=== PATIENT | male | born 1985 ===

== ENCOUNTER 2024-09-25 20:57 | Emergency (ER) | payer OTHER, SELFPAY ==
[2024-09-25 21:00] VITALS: BP 137/93
--- NOTE | 2024-09-25 22:18 | ED.GENMED ---
History of Present Illness
General
Chief Complaint: DVT/Possible Blood Clot
Source: patient
Time Seen by Provider: 09/25/24 22:11
History of Present Illness
History of Present Illness:
39yoM with a history of hyperlipidemia not on medications presenting with his for evaluation of left calf pain x 1 week. He denies any trauma or inciting incident. He reports left posterior calf pain that has been constant for week. Pain has
been worsening over the past 24 hours. He had URI symptoms prior to his calf pain starting. He took leftover antibiotics and these symptoms have resolved. No chest pain or shortness of breath. No recent travel.
Phy Exam
General Physical Exam
General Presentation: well appearing and no apparent distress
General age: appears stated age
General Skin: warm and dry
General Habitus: normal
General Mental: alert
ENT Exam
ENT Exam: normocephalic
Cardiovascular Exam
Cardiovascular Exam: regular rate/rhythm and no murmur
Pulmonary Exam
Pulmonary Exam: lungs clear, no respiratory distress, no rales, no crackles, no rhonchi and no wheezing
Radha Coma Scale
Eye Opening: Spontaneous
Verbal Response: Oriented
Motor Response: Obeys Commands
GCS Total Score: 15
Musculoskeletal Exam
Musculoskeletal Exam: other (+Tenderness to posterior L calf. No skin changes or pittingn edema. ROM of L knee and ankle normal. 2+ DP pulse and sensation intact. )
Skin Exam
Skin Exam: normal color and warm/dry
Psychiatric Exam
Psychiatric Exam: normal mood/affect
Course
Orders/Labs/Results
Orders:
Orders
09/25/24 21:04
Legs, left US [US Periph Venous LOWER Ext LT] Urgent
Comment:
Reason For Exam: left calf/posterior knee pain and swelling x 1wk
09/25/24 23:05
Complete Blood Count/With Diff Urgent
Comprehensive Metabolic Panel Urgent
09/25/24 23:35
Apixaban [Eliquis] 10 mg PO ONCE ONE
Abnormal Lab Results
09/25/24
23:05
RBC 4.56 L 10^6/uL
(4.70-6.10)
Hct 38.2 L %
(39.0-52.0)
Absolute Monos (auto) 1.0 H 10^3/uL
(0.1-0.6)
Monocytes % 10.0 H %
(1.7-9.3)
Glucose 110 H mg/dl
(70-99)
09/25/24 23:05
09/25/24 23:05
Vital Signs
Initial and Last Documented VS:
Initial Vital Signs
Temp Pulse Resp BP Pulse Ox
99 F 98 18 137/93 98
09/25/24 21:00 09/25/24 21:00 09/25/24 21:00 09/25/24 21:00 09/25/24 21:00
Last Documented Vital Signs
Temp Pulse Resp BP Pulse Ox
99 F 98 18 129/81 98
09/25/24 21:00 09/25/24 21:00 09/25/24 21:00 09/25/24 23:57 09/25/24 21:00
MDM/Problems Addressed
Differential Diagnosis Includes:
39yoM here with atraumatic L calf pain x 1 week. No CP/SOB. Otherwise asymptomatic. VSS. He is well appearing in no distress. There is tenderness to the L posterior calf on exam. No skin changes or pitting edema. LLE is neurovascularly intact.
Differential diagnosis includes but is not limited to: DVT, Max's cyst, musculoskeletal pain
Initial ED plan: Check basic labs and venous duplex.
*Critical Care Note
Total Time (30-74mins, 75-104mins- exclusive of procedures): Not Applicable
Update Note
Update Note:
Venous duplex shows an acute occlusive DVT in the gastrocnemius veins. No DVT proximally. He has no chest pain or shortness of breath to suggest PE and oxygen saturation is 98%. He is stable for discharge. He was started on Eliquis and given a
prescription for the Eliquis starter pack. First dose given in ED. No clear precipitant to DVT. Discussed with patient that he will require f/u with his PCP for further workup and medication refills. Strict ED return precautions discussed including
dyspnea, chest pain, syncope. He expressed understanding and was discharged in stable condition with his .
ED Attending Note
-
Portions of this chart may have been created with voice recognition software.� Occasional wrong word or��sound alike� substitutions may have occurred due to the inherent limitations of voice recognition software.
Discharge Plan
Departure
Patient Disposition: Home (Routine Discharge)
Date of Disposition: 09/25/24
Time of Disposition: 23:45
Patient with high blood pressure during this ER visit?: No
Discharge Problem:
Acute deep vein thrombosis (DVT) of calf muscle vein of left lower extremity
Instructions: Deep Vein Thrombosis (Blood Clots in the Legs) (DC), Apixaban
Prescriptions:
New
Eliquis DVT-PE Treat 30D Start 5 mg (74 tabs) tablets,dose pack
See Rx Instructions .ROUTE .COMPLEX Qty: 74 0RF
Rx Instructions:
orally per package directions
Referrals:
Elmer Baker DO [Family Provider] -
Activity Restrictions/Additional Instructions:
The ultrasound of your leg shows a blood clot in one of the veins of your calf.
Take Eliquis (blood thinner) as prescribed.
Please call your family doctor tomorrow to schedule a follow-up appointment.
Return to the ER with any worsening symptoms, chest pain, shortness of breath, loss of consciousness.
Interventions
Interventions:
*Risk Screen - Suicide Last Done: 09/25/24 23:59
*General Assessment Last Done: 09/25/24 23:59
*Neglect/Abuse Screening Last Done: 09/25/24 23:59
ED- Fall Risk Assessment Last Done: 09/25/24 23:59
*ED COVID-19 Vaccine History Last Done: 09/26/24 00:00
*Nursing Disposition Last Done: 09/25/24 23:59
Discharge Date and Time
Discharge Date/Time: 09/26/24 00:00
Print Language: [id number]
[2024-09-25 23:11] LABS: % Basophils 0.6 % (0-2); % Eosinophils 1.7 % (0-6); % Immature Granulocytes 0.2 % (0-0.5); % Lymphocytes 33.5 % (20.5-51.1); Absolute Basophils 0.1 10^3/uL (0-0.2); Absolute Eosinophils 0.2 10^3/uL (0-0.7); Absolute Lymphocytes 3.4 10^3/uL (1.2-3.4); Absolute Neutrophils 5.5 10^3/uL (1.4-6.5); Hematocrit 38.2 % (39.0-52.0); Hemoglobin 13.7 g/dL (13.0-18.0); Mean Corp Hgb Conc. 35.9 g/dL (33.0-37.0); Mean Corpuscular Volume 83.8 fL (80.0-94.0); Mean Platelet Volume 9.4 fL (7.4-10.4); Nucleated Red Blood Cells % 0 % (-); Platelet Count 293 10^3/uL (130-400); Red Blood Cell Count 4.56 10^6/uL (4.70-6.10); Red Cell Dist. Width 13.1 % (11.5-14.5); White Blood Cell Count 10.1 10^3/uL (4.8-10.8)
[2024-09-25 23:30] LABS: ALT (SGPT) 28 U/L (0-50); AST (SGOT) 22 U/L (17-59); Albumin 4.6 g/dl (3.5-5.0); Alkaline Phosphatase 74 U/L (38-126); Blood Urea Nitrogen 18 mg/dl (9-20); Calcium 9.8 mg/dl (8.4-10.2); Carbon Dioxide 24 mmol/L (22-30); Chloride 102 mmol/L (98-107); Glucose 110 mg/dl (70-99); Potassium 4.4 mmol/L (3.5-5.1); Sodium 139 mmol/L (135-145); Total Bilirubin 0.5 mg/dl (0.2-1.3); Total Protein 7.8 g/dl (6.3-8.2); eGFR > 60.00
[2024-09-25] MEDS: ELIQUIS 10 MG PO (23:54)
[2024-09-25 23:57] VITALS: BP 129/81
== END 2024-09-26 | disposition home or self-care (01) ==
LOC: EMR 20:57
PROVIDERS: Physician Assistant; EMERGENCY PHYSICIAN Emergency Medicine; FAMILY PHYSICIAN Family Medicine
DX: I82.462 Acute embolism and thrombosis of left calf muscular vein (principal); E78.00 Pure hypercholesterolemia, unspecified; Z79.01 Long term (current) use of anticoagulants
CPT/HCPCS: 99284; 80053; 85025; 93971